=== PATIENT | female | born 1965 | race Asian ===

== ENCOUNTER 2019-08-31 12:08 | Emergency (ER) | payer MEDICAID ==
[~2019-08-31] VITALS: Ht 152.4 cm; Wt 67.0 kg
[2019-08-31 12:27] VITALS: BP 164/72
[2019-08-31] MEDS ORDERED: ketorolac tromethamine 15mg/ml inj. IM ONE (13:25)
[2019-08-31] MEDS ORDERED: orphenadrine citrate 60mg/2ml inj. IM ONE (13:25)
[2019-08-31] MEDS ORDERED: METH-360 PO (13:28)
[2019-08-31] MEDS ORDERED: NAPR-56 PO (13:28)
== END 2019-08-31 13:45 | disposition home or self-care (01) ==
LOC: ER 12:08
DX: M54.31 Sciatica, right side (principal); M79.604 Pain in right leg; I10 Essential (primary) hypertension; E11.9 Type 2 diabetes mellitus without complications; Z79.899 Other long term (current) drug therapy
CPT/HCPCS: 96372; 99284; J1885; J2360